=== PATIENT | male | born 1975 | race African-American/Black ===

== ENCOUNTER 2017-11-09 12:00 | Emergency (ER) | payer BC ==
[2017-11-09] MEDS ORDERED: Acetaminophen/Butalbital/Caffeine 325-50-40 MG Tab PO ONE (12:23)
[2017-11-09] MEDS ORDERED: Azithromycin 250 MG Tab PO ONE (12:32)
[2017-11-09] MEDS ORDERED: cefTRIAXone 250 MG Vial IM ONE (12:32)
--- NOTE | 2017-11-09 12:34 | EDM.PDOC ---
ED HPI GENERAL MEDICAL PROBLEM - General Chief Complaint: Genitourinary Problem Stated Complaint: STD CHECK Time Seen by Provider: 11/09/17 12:15 Source of Information: Reports: Patient History Limitations: Reports: No Limitations - History of Present Illness INITIAL COMMENTS - FREE TEXT/NARRATIVE: Requests STD check. Had unprotected sex about 1.5 wks ago. For past few days has had some mild buring with urination. no discharte. No ulceration. No swelling. No trauma. no fever/recent illness. + remote hx of both chlamydia and gonorrhea which were apparently treated. Perineal Area Pain Score (Numeric/FACES): 3 - Related Data Allergies Allergy/AdvReac Type Severity Reaction Status Date / Time No Known Allergies Allergy Verified 11/09/17 12:15 Home Meds: Home Meds . [No Known Home Meds] 11/09/17 [History] Past Medical History Cardiovascular History: Reports: Hypertension Social & Family History - Tobacco Use Smoking Status *Q: Never Smoker - Recreational Drug Use Recreational Drug Use: No ED ROS GENERAL - Review of Systems Review Of Systems: See Below Constitutional: Denies: Fever Respiratory: Reports: No Symptoms Cardiovascular: Reports: No Symptoms GI/Abdominal: Reports: No Symptoms : Reports: Dysuria. Denies: Discharge ED EXAM, RENAL/ - Physical Exam Exam: See Below Exam Limited By: No Limitations General Appearance: Alert, WD/WN, No Apparent Distress Eye Exam: Bilateral Eye: Normal Inspection Head: Atraumatic, Normocephalic Neck: Normal Inspection Respiratory/Chest: No Respiratory Distress (Male) Exam: Normal Inspection. No: Penile Lesions, Scrotal Swelling, Urethral Discharge Course - Vital Signs Last Recorded V/S: Last Vital Signs Temp 37.1 C 11/09/17 12:13 Pulse 62 11/09/17 12:13 Resp 16 11/09/17 12:13 BP 158/104 H 11/09/17 12:13 Pulse Ox 100 11/09/17 12:13 - Orders/Labs/Meds Orders: Active Orders 24 hr Category Date Time Status UA W/MICROSCOPIC [URIN] Stat Lab 11/09/17 12:15 Ordered Labs: Laboratory Tests 11/09/17 11/09/17 Range/Units 12:15 12:15 Urine Color Yellow (Yellow) Urine Appearance Clear (Clear) Urine pH 6.0 (5.0-8.0) Ur Specific Red Level 1.025 (1.005-1.030) Urine Protein Negative (Negative) Urine Glucose (UA) Negative (Negative) Urine Ketones Negative (Negative) Urine Occult Blood Negative (Negative) Urine Nitrite Negative (Negative) Urine Bilirubin Negative (Negative) Urine Urobilinogen 0.2 (0.2-1.0) Ur Leukocyte Esterase Negative (Negative) Urine RBC Not seen (0-5) /hpf Urine WBC 0-5 (0-5) /hpf Ur Epithelial Cells Not seen (0-5) /hpf Urine Bacteria Few (FEW) /hpf Urine Mucus Few (FEW) /hpf C trachomatis DNA (PCR) Not detected N gonorrhoeae DNA (PCR) Not detected Meds: Medications Discontinued Medications Generic Name Dose Route Start Last Admin Trade Name Freq PRN Reason Stop Dose Admin Acetaminophen/Butalbital/Caffeine 1 tab 11/09/17 12:23 Fioricet 325-50-40 Mg PO 11/09/17 12:24 ONETIME ONE Azithromycin 1,000 mg 11/09/17 12:32 11/09/17 12:52 Zithromax PO 11/09/17 12:33 1,000 mg ONETIME ONE Administration Ceftriaxone Sodium 250 mg 11/09/17 12:32 11/09/17 12:52 Rocephin IM 11/09/17 12:33 250 mg ONETIME ONE Administration - Re-Assessments/Exams Free Text/Narrative Re-Assessment/Exam: 11/09/17 17:43 Given symptoms, covered for possible gc/chlamydia. Departure - Departure Time of Disposition: 13:00 Disposition: Home, Self-Care 01 Clinical Impression: Urethritis - Discharge Information Instructions: Urethritis, Adult Referrals: PCP,None [Primary Care Provider] - Forms: ED Department Discharge Additional Instructions: 1. Follow up with a primary care provider as needed for further care. Call [phone] to schedule. 2. Return to the ED for a recheck if you have ulcerations, fever, or other concerning symptoms. - My Orders Last 24 Hours: My Active Orders 11/09/17 12:15 UA W/MICROSCOPIC [URIN] Stat - Assessment/Plan Last 24 Hours: My Active Orders 11/09/17 12:15 UA W/MICROSCOPIC [URIN] Stat
[2017-11-09 14:14] LABS: C. TRACHOMATIS BY PCR NOT DETECTED; N. GONORRHOEAE BY PCR NOT DETECTED
== END 2017-11-09 13:25 | disposition home or self-care (01) ==
LOC: JD.ED 12:00
DX: N34.2 Other urethritis (principal); I10 Essential (primary) hypertension
CPT/HCPCS: 81001; 87491; 87591; 96372; 99283; A9270; J0696

== ENCOUNTER 2018-01-23 09:17 | Emergency (ER) | payer BC ==
[2018-01-23 13:17] LABS: C. TRACHOMATIS BY PCR NOT DETECTED; N. GONORRHOEAE BY PCR NOT DETECTED
--- NOTE | 2018-01-23 13:46 | EDM.PDOC ---
ED HPI GENERAL MEDICAL PROBLEM - General Chief Complaint: Genitourinary Problem Stated Complaint: GROIN PAIN Time Seen by Provider: 01/23/18 09:46 Source of Information: Reports: Patient, RN Notes Reviewed - History of Present Illness INITIAL COMMENTS - FREE TEXT/NARRATIVE: 42-year-old male comes in with mild dysuria. This started over the last 2 or 3 days. He did have unprotected sex about a week ago and is worried about possible STD. No fever or chills. No discharge or unusual drainage. No hematuria. No abdominal pain nausea vomiting. - Related Data Allergies Allergy/AdvReac Type Severity Reaction Status Date / Time No Known Allergies Allergy Verified 01/23/18 09:34 Home Meds: Home Meds . [No Known Home Meds] 11/09/17 [History] Past Medical History - Past Health History Medical/Surgical History: Denies Medical/Surgical History Cardiovascular History: Reports: Hypertension Social & Family History - Family History Family Medical History: Noncontributory - Tobacco Use Smoking Status *Q: Never Smoker - Recreational Drug Use Recreational Drug Use: No ED ROS GENERAL - Review of Systems Review Of Systems: See Below Constitutional: Denies: Fever, Chills HEENT: Reports: No Symptoms Respiratory: Reports: No Symptoms Cardiovascular: Reports: No Symptoms GI/Abdominal: Denies: Abdominal Pain, Nausea, Vomiting : Reports: Dysuria (Mild). Denies: Frequency, Hematuria, Urgency Skin: Denies: Rash, Lesions Neurological: Reports: No Symptoms ED EXAM, RENAL/ - Physical Exam Exam: See Below General Appearance: Alert, No Apparent Distress Eye Exam: Bilateral Eye: PERRL Throat/Mouth: Normal Inspection Neck: Supple Respiratory/Chest: No Respiratory Distress GI/Abdominal: Soft, Non-Tender Back Exam: No: CVA Tenderness (L), CVA Tenderness (R) Neurological: Alert, No Motor/Sensory Deficits Skin Exam: Warm, Dry, Normal Color, No Rash Course - Vital Signs Last Recorded V/S: Last Vital Signs Temp 98.3 F 01/23/18 09:25 Pulse 65 01/23/18 09:25 Resp 16 01/23/18 09:25 BP 150/95 H 01/23/18 09:25 Pulse Ox 100 01/23/18 09:25 - Orders/Labs/Meds Orders: Active Orders 24 hr Category Date Time Status UA W/MICROSCOPIC [URIN] Stat Lab 01/23/18 09:45 Ordered Labs: Laboratory Tests 01/23/18 01/23/18 Range/Units 09:00 09:45 Urine Color Yellow (Yellow) Urine Appearance Clear (Clear) Urine pH 6.0 (5.0-8.0) Ur Specific [place] 1.015 (1.005-1.030) Urine Protein Negative (Negative) Urine Glucose (UA) Negative (Negative) Urine Ketones Negative (Negative) Urine Occult Blood Negative (Negative) Urine Nitrite Negative (Negative) Urine Bilirubin Negative (Negative) Urine Urobilinogen 0.2 (0.2-1.0) Ur Leukocyte Esterase Negative (Negative) Urine RBC Not seen (0-5) /hpf Urine WBC Not seen (0-5) /hpf Ur Epithelial Cells Not seen (0-5) /hpf Urine Bacteria Not seen (FEW) /hpf Urine Mucus Not seen (FEW) /hpf C trachomatis DNA (PCR) Not detected N gonorrhoeae DNA (PCR) Not detected - Re-Assessments/Exams Free Text/Narrative Re-Assessment/Exam: 01/23/18 14:36 UA, STD screen negative Departure - Departure Time of Disposition: 13:45 Disposition: Home, Self-Care 01 Condition: Fair Clinical Impression: Dysuria - Discharge Information Referrals: PCP,None [Primary Care Provider] - Forms: ED Department Discharge Additional Instructions: Drink plenty of water to maintain hydration, follow-up clinic if symptoms not resolving as expected within the next 3-5 days. Return to ED as needed if symptoms worsening in any way. You may present this to your employer to document that you have been evaluated here in the ED today. You are released to work no restrictions. - My Orders Last 24 Hours: My Active Orders 01/23/18 09:45 UA W/MICROSCOPIC [URIN] Stat - Assessment/Plan Last 24 Hours: My Active Orders 01/23/18 09:45 UA W/MICROSCOPIC [URIN] Stat
== END 2018-01-23 13:49 | disposition home or self-care (01) ==
LOC: JD.ED 09:17
DX: R30.0 Dysuria (principal); I10 Essential (primary) hypertension
CPT/HCPCS: 81001; 87491; 87591; 99283

== ENCOUNTER 2018-02-05 17:06 | Emergency (ER) | payer BC ==
--- NOTE | 2018-02-05 18:02 | EDM.PDOC ---
ED HPI GENERAL MEDICAL PROBLEM - General Chief Complaint: Genitourinary Problem Stated Complaint: GROIN PAIN Time Seen by Provider: 02/05/18 17:57 Source of Information: Reports: Patient History Limitations: Reports: No Limitations - History of Present Illness INITIAL COMMENTS - FREE TEXT/NARRATIVE: 42-year-old male presents to the ED with vague symptoms of urinary tract discomfort. States intermittently he gets some pains in the urethra upon initiating voiding. Has discomfort in the urethra and penile shaft. There's been no discharge per urethra. He states he said chlamydia and gonorrhea in the past and he has no similar symptoms. He denies any pain in the testicles or scrotum. Function is normal. Denies any fever or chills. Symptoms of been ongoing for the last 2 and half weeks. He was seen through the ED 2 weeks ago and had a urinalysis which was negative and also a negative chlamydia and gonorrhea assessment. He states he's had similar symptoms in the past but they went away on their own. Onset: Gradual Onset Date: 01/18/18 Duration: Week(s): Location: Reports: Other (Urethra /penile discomfort) Quality: Reports: Ache, Dull, Other (Described more as a discomfort. There is no burning or sharp stabbing pain.). Denies: Burning, Sharp, Stabbing Severity: Mild Improves with: Reports: None Worsens with: Reports: None Context: Reports: Other (Symptoms seem to start after starting a new relationship with a female.). Denies: Activity, Exercise, Lifting, Sick Contact , Trauma Associated Symptoms: Denies: Confusion, Chest Pain, Cough, cough w sputum, Diaphoresis, Fever/Chills, Headaches, Loss of Appetite, Malaise, Nausea/Vomiting , Rash, Seizure, Shortness of Breath Treatments LOOM CHANGER: Reports: Other (see below) (None.) - Related Data Allergies Allergy/AdvReac Type Severity Reaction Status Date / Time No Known Allergies Allergy Verified 02/05/18 17:16 Home Meds: Home Meds Ascorbate Calcium [Vitamin C] 500 mg PO BID 02/05/18 [History] Doxycycline [Vibramycin] 100 mg PO DAILY #28 cap 02/05/18 [Rx] Selenium 50 mcg PO BID 02/05/18 [History] Thrive 2 tab PO BID 02/05/18 [History] Zinc Gluconate [Zinc] 50 mg PO BID 02/05/18 [History] Past Medical History - Past Health History Medical/Surgical History: Denies Medical/Surgical History Cardiovascular History: Reports: High Cholesterol, Hypertension - Infectious Disease History Infectious Disease History: Reports: Herpes, Other (See Below) Other Infectious Disease History: GC/chlamydia Social & Family History - Family History Family Medical History: Noncontributory - Tobacco Use Smoking Status *Q: Never Smoker Second Hand Smoke Exposure: No - Caffeine Use Caffeine Use: Reports: Coffee - Recreational Drug Use Recreational Drug Use: No - Living Situation & Occupation Living situation: Reports: , Single Occupation: Employed ED ROS GENERAL - Review of Systems Review Of Systems: See Below Constitutional: Denies: Fever, Chills, Weakness, Decreased Appetite HEENT: Reports: No Symptoms Respiratory: Reports: No Symptoms Cardiovascular: Reports: No Symptoms Endocrine: Reports: No Symptoms GI/Abdominal: Denies: Abdominal Pain, Constipation : Reports: Urgency (Sometimes a sense of urgency.), Other (All discomfort in the penile shaft and urethra. No severe burning no discharge per urethra.). Denies: Dysuria, Flank Pain, Frequency, Hematuria, Incontinence, Irregular Menses, Pain Musculoskeletal: Reports: No Symptoms Skin: Reports: No Symptoms Neurological: Reports: No Symptoms Psychiatric: Reports: No Symptoms Hematologic/Lymphatic: Reports: No Symptoms Immunologic: Reports: No Symptoms ED EXAM, RENAL/ - Physical Exam Exam: See Below Exam Limited By: No Limitations General Appearance: Alert, WD/WN, No Apparent Distress (Male) Exam: No Hernia. No: Inguinal Lymphadenopathy, Penile Lesions, Rash, Scrotum Tenderness (L), Scrotum Tenderness (R), Suprapubic Fullness, Testicular Mass, Testicular Tenderness (L) Rectal (Males) Exam: Deferred Back Exam: Normal Inspection, Full Range of Motion. No: CVA Tenderness (L), CVA Tenderness (R) Course - Vital Signs Last Recorded V/S: Last Vital Signs Temp 36.8 C 02/05/18 17:15 Pulse 72 02/05/18 17:15 Resp 16 02/05/18 17:15 BP 135/86 02/05/18 17:15 Pulse Ox 99 02/05/18 17:15 - Radiology Interpretation Free Text/Narrative:: 41-year-old male presents the ED with vague discomfort in the penis and urethra. States she's had this discomfort for good 2 weeks and some days are better than others. He states he has a mild component of urgency at times but no increased urinary frequency. States he drinks a lot of water anyways. Patient was seen through the ED [address] Hou. He had a normal urinalysis and a normal chlamydia and gonorrhea screen. He has no discharge per urethra but discomfort in the urethra which he describes more as a dull ache or discomfort. By history he likely has a low-grade prostatitis. He has no scrotal pain or pain in the vas deferens or testes. Plan doxycycline 100 mg twice daily for the next 14 days. Eyes it'll take 3 or 4 days for the symptoms to start to real because the antibiotic will take that long to start to work. Should be much improved by day 10 of antibiotic therapy. Departure - Departure Time of Disposition: 17:59 Disposition: Home, Self-Care 01 Condition: Fair Clinical Impression: Prostatitis syndrome - Discharge Information Prescriptions: Doxycycline [Vibramycin] 100 mg PO DAILY #28 cap Instructions: Prostatitis, [id number] Referrals: PCP,None [Primary Care Provider] - Forms: ED Department Discharge Additional Instructions: Evaluation the emergency room in regards to persistent discomfort in the urethra for over 2 and half weeks. Previous investigations done 2 weeks ago were negative for chlamydia and gonorrhea and a normal urinalysis was identified. Symptoms persisting suggest that you have a low-grade infection likely in your prostate gland possibly in the urethra itself. No further investigations are felt to be necessary at this time. Suggest antibiotic doxycycline 100 mg twice daily for the next 2 weeks to eradicate infection in either the urethra and/or prostate. Should expect gradual improvement starting after 3 days and by 10 days marked improvement.
== END 2018-02-05 18:07 | disposition home or self-care (01) ==
LOC: JD.ED 17:06
DX: N41.9 Inflammatory disease of prostate, unspecified (principal); I10 Essential (primary) hypertension; Z79.899 Other long term (current) drug therapy
CPT/HCPCS: 99283